=== PATIENT | female | born 1980 | race Caucasian/White ===

== ENCOUNTER 2017-08-26 12:04 | Emergency (ER) | payer SELFPAY ==
[~2017-08-26] VITALS: Ht 165.1 cm; Wt 89.4 kg
[2017-08-26 12:14] VITALS: BP 113/80
--- NOTE | 2017-08-26 12:21 | NUR ---
PATIENT AMBULATED TO BED 5.
--- NOTE | 2017-08-26 12:28 | NUR ---
REPORT GIVEN TO DARRIN HAYWOOD
[2017-08-26] MEDS ORDERED: KETOROLAC 60 MG/2 ML VIAL IM ONE (12:40)
[2017-08-26] MEDS ORDERED: HYDROcodone/APAP 5/325 MG 1 TAB TAB PO ONE (12:40)
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
--- NOTE | 2017-08-26 13:13 | NUR ---
PT WENT TO XRAY
[2017-08-26 15:39] VITALS: BP 112/59
== END 2017-08-26 15:41 | disposition home or self-care (01) ==
LOC: EDBD 12:04 → MED 12:04
DX: S29.012A Strain of muscle and tendon of back wall of thorax, initial encounter (principal); Z90.49 Acquired absence of other specified parts of digestive tract; V49.69XA Unspecified car occupant injured in collision with other motor vehicles in traffic accident, initial encounter; Y93.89 Activity, other specified; Y92.488 Other paved roadways as the place of occurrence of the external cause; Y99.8 Other external cause status
CPT/HCPCS: 71046; 72040; 72100; 81025; 96372; 99285; J1885